=== PATIENT | female | born 1990 | race Caucasian/White ===

== ENCOUNTER 2019-05-08 08:44 | Emergency (ER) | payer MEDICAID ==
[~2019-05-08] VITALS: Ht 160 cm; Wt 102.1 kg
[2019-05-08 08:58] VITALS: BP_SYST 118
--- NOTE | 2019-05-08 09:00 | NUR ---
Patient to ER bed 5 to gown for evaluation. Side rails up. Report given to Samira BORGES.
--- NOTE | 2019-05-08 09:01 | NUR ---
Patient presented to ER with C/O of Right leg numbness and swelling. Patient A&Ox4, ambulatory to ER, skin pink, denies pain , denies N/V/D, anxious, tearful. Patient states she is concerned for swelling & numbness to Right knee & lower leg. Patient states she was seen at [facility] ER yesterday for Right leg swelling & pain, the swelling did not subside & today she states she feels a tingling sensation to right lower leg. Patinet denies other health hx.
--- NOTE | 2019-05-08 09:17 | NUR ---
ER Dr. Cristobal at bedside examining patient.
--- NOTE | 2019-05-08 10:25 | NUR ---
Patient to ER bed 5 from Radiology/ultrasound via wheelchair.
--- NOTE | 2019-05-08 10:33 | NUR ---
ER Dr. Cristobal at bedside discussing results with patient.
[2019-05-08 10:43] VITALS: BP_SYST 116
== END 2019-05-08 10:33 | disposition home or self-care (01) ==
LOC: SED 08:44
DX: M25.461 Effusion, right knee (principal); J45.909 Unspecified asthma, uncomplicated; Z86.2 Personal history of diseases of the blood and blood-forming organs and certain disorders involving the immune mechanism
CPT/HCPCS: 93971; 99284